=== PATIENT | female | born 1950 | race African-American/Black ===

== ENCOUNTER 2022-05-29 13:53 | Emergency (ER) | payer BC, MEDICAID ==
[~2022-05-29] VITALS: Ht 162.6 cm; Wt 80.0 kg
[2022-05-29 14:05] VITALS: BP 150/79
[2022-05-29 18:22] LABS: BASOPHILS % 0.4 % (0.0-2.0); HEMATOCRIT. 38.3 % (36.0-48.0); HEMOGLOBIN. 12.4 g/dL (12.0-16.0); LYMPHOCYTES % 16.6 % (20.0-50.0); MEAN CORPUSCULAR HEMOGLOBIN 28.4 pg (28.0-32.0); MEAN CORPUSCULAR VOLUME 87.7 fL (81.0-99.0); MEAN PLATELET VOLUME 9.1 fl (7.4-10.4); MONOCYTES % 11.1 % (2.0-8.0); NEUTROPHILS % 71.9 % (40.0-76.0); PLATELET 139 x1000/uL (130-400); RED BLOOD CELL COUNT 4.37 mill/uL (4.2-5.4); RED CELL DISTRIBUTION WIDTH 14.7 % (11.6-14.6)
[2022-05-29 18:33] LABS: CHLORIDE 101 mEq/L (98-107)
[2022-05-29] MEDS ORDERED: NIRM1TAB PO (19:27)
== END 2022-05-29 19:52 | disposition home or self-care (01) ==
LOC: ER 13:53
DX: U07.1 COVID-19 (principal); E11.9 Type 2 diabetes mellitus without complications; I10 Essential (primary) hypertension
CPT/HCPCS: 36415; 71045; 80053; 83880; 85025; 87426; 93005; 99285; C9803

== ENCOUNTER 2022-08-03 08:49 | Emergency (ER) | payer BC, MEDICAID ==
[~2022-08-03] VITALS: Ht 167.6 cm; Wt 65.0 kg
[~2022-08-03 08:49] MED LIST: NIRM1TAB PO
[2022-08-03] MEDS ORDERED: ACETAMINOPHEN 325MG TABLET PO ONE (10:45)
[2022-08-03] MEDS ORDERED: AMOX1TAB16 MT (13:10)
[2022-08-03] MEDS ORDERED: HYDR-4001 MT (13:10)
[2022-08-03 13:48] VITALS: BP 140/72
== END 2022-08-03 13:50 | disposition home or self-care (01) ==
LOC: ER 09:46
DX: S02.32XA Fracture of orbital floor, left side, initial encounter for closed fracture (principal); S02.842A Fracture of lateral orbital wall, left side, initial encounter for closed fracture; S02.82XA Fracture of other specified skull and facial bones, left side, initial encounter for closed fracture; S00.83XA Contusion of other part of head, initial encounter; M25.561 Pain in right knee; E11.9 Type 2 diabetes mellitus without complications; I10 Essential (primary) hypertension; W01.0XXA Fall on same level from slipping, tripping and stumbling without subsequent striking against object, initial encounter; Y93.89 Activity, other specified; Y92.89 Other specified places as the place of occurrence of the external cause; Z86.16 Personal history of COVID-19
CPT/HCPCS: 70486; 73562; 99284